=== PATIENT | male | born 1980 | race Caucasian/White ===

== ENCOUNTER 2018-06-10 10:51 | Day surgery (SDC) | payer OTHER ==
[2018-06-10] MEDS ORDERED: BUPIVACAINE/EPI 0.25% 30 ML SDV ONE ×2 (11:31→13:55)
[2018-06-10] MEDS ORDERED: LR 1,000 ML IV ONE (11:35)
[2018-06-10] MEDS ORDERED: PREGABALIN 150 MG CAP PO ONE (12:58)
[2018-06-10] MEDS ORDERED: ceFAZolin 2 GM/DEXTROSE 100 ML IV ONE (12:58)
[2018-06-10] MEDS ORDERED: ACETAMINOPHEN 500 MG TAB PO ONE (12:58)
--- NOTE | 2018-06-10 12:58 | PDHPUP ---
History & Physical Update H&P update statement: This history and physical update is based on an assessment of the patient which was completed after admission or registration (within 24 hours), but prior to the surgery/procedure. H&P update: H&P reviewed & patient examined, no change in patient's condition since H&P completed
[2018-06-10] MEDS ORDERED: LR 1,000 ML IV SCH (13:00)
--- NOTE | 2018-06-10 13:21 | PDANEPAE ---
ANE History of Present Illness Right ankle fx ANE Past Medical History - Cardiovascular History Hx Hypertension: No Hx Arrhythmias: No Hx Chest Pain: No Hx Coronary Artery / Peripheral Vascular Disease: No Hx CHF / Valvular Disease: No Hx Palpitations: No - Pulmonary History Hx COPD: No Hx Asthma/Reactive Airway Disease: No Hx Recent Upper Respiratory Infection: No Hx Oxygen in Use at Home: No Hx Sleep Apnea: No Pulmonary History Comment: only 1-2 cigarettes per week - Neurologic History Hx Cerebrovascular Accident: No Hx Seizures: No Hx Dementia: No - Endocrine History Hx Diabetes: No Hypothyroid: No Hyperthyroid: No Obesity: no - Renal History Hx Renal Disorders: Yes Renal History Comment: left kidney infection 1 year ago, took pills and drain lots of water and went away - Liver History Hx Hepatic Disorders: No - Neurological & Psychiatric Hx Hx Neurological and Psychiatric Disorders: Yes Neurological / Psychiatric History Comment: little depression currently because of foot - Cancer History Hx Cancer: No - Congenital Disorder History Hx Congenital Disorders: No - GI History GERD: no Hx Gastrointestinal Disorders: No - Chronic Pain History Chronic Pain: No - Surgical History Prior Surgeries: none ANE Review of Systems Review of systems is: negative Review of Systems: - Exercise capacity Exercise capacity: >=4 METS METS (RN): 6 METS ANE Patient History - Allergies Allergies/Adverse Reactions: No Known Allergies Allergy (Unverified 06/05/18 17:06) - Home Medications Home medications: home medication list seen and reviewed - NPO status NPO Since - Liquids (Date): 06/10/18 NPO Since - Liquids (Time): 08:00 NPO Since - Solids (Date): 06/10/18 NPO Since - Solids (Time): 08:00 - Smoking Hx Smoking Status: Current some day smoker - Family Anes Hx Family Anes Hx: none ANE Labs/Vital Signs - Vital Signs Blood Pressure: 117/75 Heart Rate: 70 Respiratory Rate: 14 O2 Sat (%): 95 Height: 172.72 cm Weight: 72.575 kg ANE Physical Exam - Airway Neck exam: FROM Mallampati Score: Class 1 Mouth exam: normal dental/mouth exam - Pulmonary Pulmonary: no respiratory distress - Cardiovascular Cardiovascular: regular rate and rhythym - ASA Status ASA Status: II ANE Anesthesia Plan Anesthesia Plan: general endotracheal anesthesia
[2018-06-10] MEDS ORDERED: PROPOFOL 200 MG/20 ML VIAL ONE (13:48)
[2018-06-10] MEDS ORDERED: fentaNYL 100 MCG/2 ML INJ ONE ×3 (13:49→18:06)
[2018-06-10] MEDS ORDERED: MIDAZOLAM 2 MG/2 ML VIAL IVP ONE (13:50)
[2018-06-10] MEDS ORDERED: ROCURONIUM 50 MG/5 ML VIAL ONE ×2 (13:50→15:02)
[2018-06-10] MEDS ORDERED: ONDANSETRON 4 MG/2 ML VIAL ONE (13:52)
[2018-06-10] MEDS ORDERED: DEXAMETHASONE 4 MG/ML VIAL ONE ×2 (13:52)
[2018-06-10] MEDS ORDERED: MIDAZOLAM 2 MG/2 ML VIAL ONE (13:53)
[2018-06-10] MEDS ORDERED: LIDOCAINE 2% 5 ML SDV ONE (13:54)
[2018-06-10] MEDS ORDERED: HYDROmorphONE/DILAUDID 2 MG/ML INJ ONE (14:45)
[2018-06-10] MEDS ORDERED: NEOSTIGMINE METHYLSULFATE 5 MG/5 ML SYR ONE (16:10)
[2018-06-10] MEDS ORDERED: GLYCOPYRROLATE 0.2 MG/1 ML VIAL ONE ×2 (16:10)
[2018-06-10] MEDS ORDERED: PROMETHAZINE HCL 25 MG/ML INJ IVP PRN (16:18)
[2018-06-10] MEDS ORDERED: oxyCODONE IR 5 MG TAB PO PRN (16:18)
[2018-06-10] MEDS ORDERED: NALOXONE HCL 0.4 MG/ML INJ IVP PRN (16:18)
[2018-06-10] MEDS ORDERED: LR 500 ML IV PRN (16:18)
[2018-06-10] MEDS ORDERED: METOCLOPRAMIDE 10 MG/2 ML VIAL IVP PRN (16:18)
[2018-06-10] MEDS ORDERED: HYDROmorphONE/DILAUDID 2 MG/ML INJ IVP PRN (16:18)
[2018-06-10] MEDS ORDERED: MEPERIDINE 25 MG/0.5 ML AMP IVP PRN (16:18)
[2018-06-10] MEDS ORDERED: ACETAMINOPHEN 500 MG TAB PO PRN (16:18)
[2018-06-10] MEDS ORDERED: ALBUTEROL 3 ML DEYVIAL IH PRN (16:18)
[2018-06-10] MEDS ORDERED: HYDROGEN PEROXIDE 473 ML BOTTLE TP ONE (16:28)
--- NOTE | 2018-06-10 16:54 | POSTOPPROG ---
Post Op Note Date of Operation: 06/10/18 Surgeon: Elías Aguilar Nailing Machine Operator: CAITLIN Murillo Anesthesiologist: Mamie Anesthesia: GET(General Endotracheal) Pre-op Diagnosis: nohemy ankle fx dislocation Post-op Diagnosis: same Procedure: R ankle and syndesmosis ORIF Inf/Abcess present in the surg proc area at time of surgery?: No EBL: 50-100 (50)
--- NOTE | 2018-06-10 17:12 | POSTANESTH ---
Post Anesthetic Evaluation Cardiovascular Status: Normal, Stable Respiratory Status: Normal, Stable Level of Consciousness/Mental Status: Can Participate in Eval Pain Control: Adequate, Prn Tx Ordered Nausea/Vomiting Control: Adequate, Prn Tx Ordered Complications Possibly Related to Anesthesia: None Noted
[2018-06-10] MEDS: fentaNYL 100 MCG/2 ML INJ IVP PRN ×3 (17:16→18:09)
[2018-06-10] MEDS ORDERED: oxyCODONE IR 5 MG TAB ONE (18:06)
[2018-06-10 18:17] VITALS: BP 151/98
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
== END 2018-06-10 19:05 | disposition home or self-care (01) ==
LOC: FSGY 10:51
PROVIDERS: ATTEND Orthopaedic Surgery
DX: S82.841A Displaced bimalleolar fracture of right lower leg, initial encounter for closed fracture (principal); V48.5XXA Car driver injured in noncollision transport accident in traffic accident, initial encounter; Y92.410 Unspecified street and highway as the place of occurrence of the external cause; Y93.9 Activity, unspecified; Y99.9 Unspecified external cause status
CPT/HCPCS: 27814; 27829; 76001; C1769; C1713; J0690; J1100; J1170; J2250; J2405; J2704; J2710; J3010